=== PATIENT | female | born 1990 | race Two or more races ===

== ENCOUNTER → 2017-05-30 | Outpatient (CLI) | payer OTHER | END | disposition home or self-care (01) | LOC: PPH VACUNA 15:07 | DX: Z23 Encounter for immunization (principal) ==

== ENCOUNTER 2017-06-25 18:49 | Outpatient (CLI) | payer OTHER ==
[2017-06-28] MEDS ORDERED: PRENATAL TABLE1 EAC1 PO (18:45)
== END 2017-06-26 13:00 | disposition home or self-care (01) ==
LOC: OBS/DEL 18:49
DX: O47.1 False labor at or after 37 completed weeks of gestation (principal); Z34.03 Encounter for supervision of normal first pregnancy, third trimester

== ENCOUNTER → 2019-09-12 | Outpatient (CLI) | payer OTHER ==
[~2019-09-12] MED LIST: CODE1TAB37 PO; PRENATAL TABLE1 EAC1 PO
== END | disposition home or self-care (01) ==
LOC: PRENATAL 10:00
PROVIDERS: ATTEND Obstetrics & Gynecology
DX: O36.60X1 Maternal care for excessive fetal growth, unspecified trimester, fetus 1 (principal); O35.0XX1 Maternal care for (suspected) central nervous system malformation in fetus, fetus 1; O34.211 Maternal care for low transverse scar from previous cesarean delivery; O35.3XX1 Maternal care for (suspected) damage to fetus from viral disease in mother, fetus 1; O43.92 Unspecified placental disorder, second trimester

== ENCOUNTER → 2019-10-30 | Outpatient (CLI) | payer OTHER ==
[~2019-10-30] MED LIST changes: +Tylenol #3 PO
== END | disposition home or self-care (01) ==
LOC: PRENATAL 09:45
PROVIDERS: ATTEND Obstetrics & Gynecology Maternal & Fetal Medicine
DX: O35.0XX1 Maternal care for (suspected) central nervous system malformation in fetus, fetus 1 (principal); O34.211 Maternal care for low transverse scar from previous cesarean delivery; O43.93 Unspecified placental disorder, third trimester; Z36.89 Encounter for other specified antenatal screening; Z3A.32 32 weeks gestation of pregnancy

== ENCOUNTER 2019-12-05 11:54 | Inpatient (IN) | payer OTHER ==
[~2019-12-05] VITALS: Ht 157.5 cm; Wt 3.2 kg
[~2019-12-05 11:54] MED LIST changes: -Tylenol #3 PO
[2019-12-09] MEDS ORDERED: Tylenol #3 PO (08:45)
== END 2019-12-09 15:13 | disposition home or self-care (01) | DRG 788 ==
LOC: OBS/DEL 11:54 → LDR 12:14 → OB/GYN 12:14 → O/R 12:14 → OB/GYN 19:04
PROVIDERS: ADMIT Obstetrics & Gynecology; ATTEND Obstetrics & Gynecology
PROC: 4A1HXCZ Monitoring of Products of Conception, Cardiac Rate, External Approach (ICD-10-PCS; 2019-12-05)
PROC: 10D00Z1 Extraction of Products of Conception, Low, Open Approach (ICD-10-PCS; principal; 2019-12-05 15:00)
DX: O82 Encounter for cesarean delivery without indication (principal); Z20.828 Contact with and (suspected) exposure to other viral communicable diseases; Z3A.38 38 weeks gestation of pregnancy; Z37.0 Single live birth